=== PATIENT | male | born 1960 | race Caucasian/White ===

== ENCOUNTER 2024-11-30 09:41 | Emergency (ER) | payer MEDICAID, OTHER ==
[~2024-11-30] VITALS: Ht 170.2 cm; Wt 70.7 kg
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
--- NOTE | 2024-11-30 10:43 | DVH ---
CLINICAL INDICATION: pain TECHNIQUE: 3 radiographic views of the left hand were obtained. Comparison: None FINDINGS/IMPRESSION: There is no evidence of acute fracture or dislocation. The visualized joint space is well maintained. The alignment is anatomical. There is no radiopaque foreign body.
[2024-11-30 10:45] VITALS: BP 120/80; PULSE 87; RESP 20; TEMP 98; O2SAT 98
[2024-11-30] MEDS ORDERED: NAPR-746 PO (10:56)
== END 2024-11-30 11:00 | disposition home or self-care (01) ==
LOC: ER 09:41
DX: S63.8X2A Sprain of other part of left wrist and hand, initial encounter (principal); I10 Essential (primary) hypertension; F20.9 Schizophrenia, unspecified; G20.A1 Parkinson's disease without dyskinesia, without mention of fluctuations; W06.XXXA Fall from bed, initial encounter; Y93.89 Activity, other specified; Y92.89 Other specified places as the place of occurrence of the external cause; Y99.8 Other external cause status
CPT/HCPCS: 73130

== ENCOUNTER 2025-02-14 08:33 | Emergency (ER) | payer MEDICAID ==
[~2025-02-14] VITALS: Ht 170.2 cm; Wt 69.3 kg
[~2025-02-14 08:33] MED LIST: NAPR-746 PO
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
--- NOTE | 2025-02-14 09:46 | DVH ---
CT HEAD WITHOUT CONTRAST INDICATION: FALL EXAM DATE: 02/14/2025 08:52 AM COMPARISON: None RADIATION DOSE: CTDIvol: 69.1 mGy, DLP: 1361.3 mGy*cm PROCEDURE: CT scans of the head were obtained from the vertex to the skull base. Sagittal and coronal reconstructions were provided. All CT scans at this medical facility are performed using dose modulation techniques as appropriate t o a performed exam including the following: Automated exposure control was utilized; adjustment of th e MA and/or KV according to patient size; and use of iterative reconstruction technique. FINDINGS: There is sulcal and ventricular prominence. The brainshows normal morphology and matias-whi te matter differentiation, without intracranial hemorrhage, extra-axial fluid collection, mass effect or acute large vessel infarct. The ventricles are normal in size. The basal cisterns are patent. The skull and visible facial bones are intact. The paranasal sinuses, mastoid air cells and middle ear c avities are well-aerated. The soft tissues of the scalp are unremarkable. IMPRESSION: No acute intracranial abnormality.
[2025-02-14 09:55] VITALS: BP 105/69; PULSE 80; RESP 16; TEMP 97.5; O2SAT 97
[2025-02-14] MEDS ORDERED: ACET-1080 PO (10:03)
== END 2025-02-14 10:06 | disposition home or self-care (01) ==
LOC: ER 08:33
DX: S09.90XA Unspecified injury of head, initial encounter (principal); R51.9 Headache, unspecified; I10 Essential (primary) hypertension; W19.XXXA Unspecified fall, initial encounter; Y93.01 Activity, walking, marching and hiking; Y92.89 Other specified places as the place of occurrence of the external cause; Y99.8 Other external cause status
CPT/HCPCS: 70450

== ENCOUNTER 2025-03-06 18:25 | Emergency (ER) | payer MEDICAID ==
[~2025-03-06] VITALS: Ht 170.2 cm; Wt 71.4 kg
[~2025-03-06 18:25] MED LIST changes: +ACET-1080 PO
--- NOTE | 2025-03-06 18:50 | ED.PDOC ---
Shireen. trauma (HPI) HPI Comments 64 y/o M, with PMHx of cancer, depression, schizophrenia, and HTN, is brought in by care-planning consultant for CC of s/p fall injury. 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 Patient has a notable abrasion to the nasal bridge and right eyebrow with dry eschar present. No other symptoms or modifying factors are present at this time. Chief Complaint: Fall Injury Time Seen by MD: 18:50 Primary Care Provider: UNKNOWN Reviewed notes: Nurses Notes, Medications, Allergies Allergies: Coded Allergies: NO KNOWN ALLERGIES (Unverified , 02/14/25) Home Meds Active Scripts Acetaminophen (Tylenol 8 Hour Arthritis) 650 Mg Tab, 650 MG PO TID, #30 TAB Prov:AYANA VILLALTA 02/14/25 Naproxen (Naproxen) 500 Mg Tab, 500 MG PO BID, #30 TAB Prov:AYANA VILLALTA 11/30/24 Information Source: Patient Mode of Arrival: Ambulatory Severity: Moderate Timing: Minutes Duration: Since onset Prehospital treatment: None Location: Face (nasal bridge), Head Mechanism: Fall Associated signs and symtoms: None Past Medical History PAST MEDICAL HISTORY: Cancer, Depression, HTN, Schizophrenia, Thyroid Surgical History: Denies all surgeries Family History Family History: Reviewed,noncontributory to illness, Unknown Social History Smoker: Non-Smoker Alcohol: Denies ETOH Use Drugs: Denies Drug Use Lives In: Assisted Care Constitutional: denies: chills, diaphoresis, fatigue, fever, malaise, sweats, weakness, others EENTM: denies: blurred vision, double vision, ear bleeding, ear discharge, ear drainage, ear pain, ear ringing, eye pain, eye redness, hearing loss, mouth pain, mouth swelling, nasal discharge, nose bleeding, nose congestion, nose pain, photophobia, tearing, throat pain, throat swelling, voice changes, others Respiratory: denies: cough, hemoptysis, orthopnea, SOB at rest, shortness of breath, SOB with excertion, stridor, wheezing, others Cardiovascular: denies: chest pain, dizzy spells, diaphoresis, Dyspnea on exertion, edema, irregular heart beat, left arm pain, lightheadedness, palpitations, PND, syncope, others Gastrointestinal: denies: abdomen distended, abdominal pain, blood streaked bowels, constipated, diarrhea, dysphagia, difficulty swallowing, hematemesis, melena, nausea, poor appetite, poor fluid intake, rectal bleeding, rectal pain, vomiting, others Genitourinary: denies: burning, dysuria, flank pain, frequency, hematuria, incontinence, penile discharge, penile sore, pain, testicle pain, testicle swelling, urgency, others Neurological: denies: dizziness, fainting, headache, left sided numbness, left sided weakness, numbness, paresthesia, pre-existing deficit, right sided numbness, right sided weakness, seizure, speech problems, tingling, tremors, weakness, others Musculoskeletal: denies: back pain, gout, joint pain, joint swelling, muscle pain, muscle stiffness, neck pain, others Integumetry: reports: others (abrasion to the right eyebrow, and nasal bridge); denies: bruises, change in color, change in hair/nails, dryness, laceration, lesions, lumps, rash, wounds Allergic/Immunocompromised: denies: Difficulty Healing, Frequent Infections, Hives, Itching, others Hematologic/Lymphatic: denies: anemia, blood clots, easy bleeding, easy bruising, swollen glands, others Endocrine: denies: excessive hunger, excessive sweating, excessive thirst, excessive urination, flushing, intolerance to cold, intolerance to heat, unexplained weight gain, unexplained weight loss, others Psychiatric: denies: anxiety, bipolar disorder, depression, hopeless, panic disorder, schizophrenia, sleepless, suicidal, others All Other Systems: Reviewed and Negative Physical Exam General Appearance: No Apparent Distress, Normal HEENT: Normal ENT Inspection, Pharynx Normal Neck: Full Range of Motion, Non-Tender, Normal, Normal Inspection Respiratory: Chest Non-Tender, Lungs Clear, No Accessory Muscle Use, No Respiratory Distress, Normal Breath Sounds Cardiovascular: No Edema, No Murmur, No Gallop, Normal Peripheral Pulses, Regular Rate/Rhythm Breast Exam: Deferred Gastrointestinal: No Organomegaly, Non Tender, No Pulsatile Mass, Normal Bowel Sounds, Soft Genitalia: Deferred Pelvic: Deferred Rectal: Deferred Extremities: No calf tenderness, Normal capillary refill, Normal inspection, Normal range of motion, Non-tender, No pedal edema Musculoskeletal : Apperance: Normal Neurologic: Alert, chronometer tester II-XII nml as Tested, No Motor Deficits, Normal Affect, Normal Mood, No Sensory Deficits Cerebellar Function: Normal Reflexes: Normal Skin: Dry, Normal Color, Other (abrasion to the nasal bridge and right eyebrow, no active bleeding) Lymphatic: No Adenopathy Was a procedure done? Was a procedure done?: No Differential Diagnosis Multiple Trauma: Fractures, Abrasions X-Ray, Labs, Meds, VS Vital Signs Date Time Temp Pulse Resp B/P (MAP) Pulse Ox O2 Delivery O2 Flow Rate FiO2 03/06/25 18:31 98.2 92 18 135/85 96 98.2 [place] [address] Ph: [phone] DIAGNOSTIC IMAGING Diagnostic Imaging Report : [id number] Signed PATIENT: CHARIS PAUL ACCT: [id number] UNIT: [id number] : 1960 LOC: ER ROOM / BED: / AGE / SEX: 64 / M ADM STATUS: REG ER SERVICE 58 ORDERING PHYSICIAN: JOHNSON JOSE PROCEDURE(s): HWOCT - HEAD WITHOUT CONTRAST REASON: fall ORDER NUMBER(s): [id number], ACCESSION NUMBER(s): [id number] CLINICAL HISTORY: fall TECHNIQUE: Helical scanning was performed of the head from the skull base to the vertex. Multiplanar reconstructions were performed. This exam was performed according to our departmental dose optimization program. Up-to-date CT equipment and radiation dose reduction techniques are utilized as appropriate. CTDI 68 DLP 1200 COMPARISON: CT HEAD WITHOUT CONTRAST on DOS: 02/14/25 FINDINGS: There is no evidence for acute intracranial hemorrhage, acute ischemic changes, mass, mass effect, or extra-axial fluid collection. There is no hydrocephalus or midline shift. There is no effacement of the cerebral sulci and basal subarachno id cisterns. The matias-white matter differentiation is well maintained. The imaged paranasal sinuses are clear. IMPRESSION: NO ACUTE INTRACRANIAL ABNORMALITY SEEN. ATED BY: SURINDER BARNES MD DICTATED DATE/TIME: 03/06/251937 SIGNED BY: SURINDER BARNES MD SIGNED DATE/TIME: 03/06/251937 CC: X-Ray, Labs, Meds, VS Comment Imaging was reviewed by this provider, there is no obvious pathological or acute disease process. Pending radiology review Labs were reviewed by this provider, no abnormalities Vital signs reviewed by this provider, clinically stable Time of 1ST Reevaluation: 19:20 Reevaluation 1ST: Unchanged Patient Education/Counseling: Diagnosis, Treatment, Need For Follow Up Family Education/Counseling: Diagnosis, Treatment, Need For Follow Up (Follow up with PCP next available appointment.) Departure 1 Departure Time of Disposition: 20:06 Impression: Primary Impression: Head pain Qualified Codes: G44.209 - Tension-type headache, unspecified, not intractable Additional Impression: Status post fall Disposition: HOME / SELF CARE / HOMELESS Condition: Fair Discharged With: Self Critical Care Note Critical Care Time?: No Stability Stability form required: No Heart Score Heart Score: Heart Score Response (Comments) Value History N/A 0 EKG N/A 0 Age N/A 0 Risk Factors N/A 0 Troponin N/A 0 Total 0 I personally scribed for JOSE,CHRISTOPHER E REAL ESTATE ASSESSOR ([email or web address]) on 03/06/25 at 18:50. Electronically submitted by Irene Laboy ([employer]). I personally scribed for JOSE,CHRISTOPHER E REAL ESTATE ASSESSOR ([email or web address]) on 03/06/25 at 19:02. Electronically submitted by Irene Laboy ([employer]). I personally scribed for JOSE,CHRISTOPHER E REAL ESTATE ASSESSOR ([email or web address]) on 03/06/25 at 20:03. Electronically submitted by Irene Laboy ([employer]). JOSE,CHRISTOPHER E REAL ESTATE ASSESSOR Mar 06, 2025 18:50
--- NOTE | 2025-03-06 19:40 | DVH ---
CLINICAL HISTORY: fall TECHNIQUE: Helical scanning was performed of the head from the skull base to the vertex. Multiplanar reconstructions were performed. This exam was performed according to our departmental dose optimizat ion program. Up-to-date CT equipment and radiation dose reduction techniques are utilized as appropri ate. CTDI 68 DLP 1200 COMPARISON: CT HEAD WITHOUT CONTRAST on DOS: 02/14/25 FINDINGS: There is no evidence for acute intracranial hemorrhage, acute ischemic changes, mass, mass effect, or extra-axial fluid collection. There is no hydrocephalus or midline shift. There is no effacement of the cerebral sulci and basal subarachnoid cisterns. The matias-white matter differentiation is well lowell ntained. The imaged paranasal sinuses are clear. IMPRESSION: NO ACUTE INTRACRANIAL ABNORMALITY SEEN.
[2025-03-06 20:00] VITALS: BP 115/73; PULSE 75; RESP 20; TEMP 98.2; O2SAT 100
== END 2025-03-06 20:20 | disposition home or self-care (01) ==
LOC: ER 18:25
DX: S00.31XA Abrasion of nose, initial encounter (principal); R51.9 Headache, unspecified; I10 Essential (primary) hypertension; F20.9 Schizophrenia, unspecified; E03.9 Hypothyroidism, unspecified; W01.0XXA Fall on same level from slipping, tripping and stumbling without subsequent striking against object, initial encounter; Y93.89 Activity, other specified; Y92.89 Other specified places as the place of occurrence of the external cause; Y99.8 Other external cause status
CPT/HCPCS: 70450

== ENCOUNTER 2025-03-07 12:27 | Emergency (ER) | payer MEDICAID ==
--- NOTE | 2025-03-07 12:56 | ED.PDOC ---
Shireen. trauma (HPI) HPI Comments A 79 YEAR OLD MALE PRESENTS TO THE ED WITH COMPLAINT OF FALL INJURY. PATIENT PRESENTS WITH A CAREGIVER WHO STATES PATIENT HAD FALL LAST NIGHT P.M. WHILE GE TTING INTO BED. PATIENT FELL FORWARD ON HEAD WITH NO ASSOCIATED LOSS OF CONSCIOUSNESS AND HAS NOTED CONTUSION TO THE RIGHT SIDE OF THE FACE AND LEFT CHEEK. PATIENT HAD ANOTHER FALL EARLIER THIS A.M WITH NO ASSOCIATED LOSS OF CONSCIOUSNESS BUT STARTED TO COMPLAIN OF PAIN TO HIS LEFT SHOULDER LEFT KNEE AND WAS BROUGHT TO THE ED FOR EVALUATION. PATIENT IN THE ED ABLE TO AMBULATE WITHOUT ANY DIFFICULTY. PATIENT DENIES FEVER, CHILLS, SHORTNESS OF BREATH, CHEST PAIN, ABDOMINAL PAIN, NAUSEA, VOMITING, HEADACHE, OR OTHER COMPLAINTS. NO OTHER SYMPTOMS OR MODIFYING FACTORS AT THIS TIME. PATIENT IS ALERT, ORIENTED X 4, AND HAS STEADY GAIT. Chief Complaint: Fall Injury Time Seen by MD: 12:49 Primary Care Provider: UNKNOWN Reviewed notes: Nurses Notes, Medications, Allergies Allergies: Coded Allergies: NO KNOWN ALLERGIES (Unverified , 02/14/25) Home Meds Active Scripts Acetaminophen (Tylenol 8 Hour Arthritis) 650 Mg Tab, 650 MG PO TID, #30 TAB Prov:AYANA VILLALTA 02/14/25 Naproxen (Naproxen) 500 Mg Tab, 500 MG PO BID, #30 TAB Prov:AYANA VILLALTA 11/30/24 Information Source: Patient Mode of Arrival: Ambulatory Severity: Mild Timing: Days Duration: Since onset, Days Prehospital treatment: None Location: (L) Knee, (R) Knee Mechanism: Fall Associated signs and symtoms: None Past Medical History PAST MEDICAL HISTORY: Cancer, Depression, HTN, Schizophrenia, Thyroid Surgical History: Denies all surgeries Family History Family History: Reviewed,noncontributory to illness, Unknown Social History Smoker: Non-Smoker Alcohol: Denies ETOH Use Drugs: Denies Drug Use Lives In: Assisted Care Constitutional: denies: chills, diaphoresis, fatigue, fever, malaise, sweats, weakness, others EENTM: denies: blurred vision, double vision, ear bleeding, ear discharge, ear drainage, ear pain, ear ringing, eye pain, eye redness, hearing loss, mouth pain, mouth swelling, nasal discharge, nose bleeding, nose congestion, nose pain, photophobia, tearing, throat pain, throat swelling, voice changes, others Respiratory: denies: cough, hemoptysis, orthopnea, SOB at rest, shortness of breath, SOB with excertion, stridor, wheezing, others Cardiovascular: denies: chest pain, dizzy spells, diaphoresis, Dyspnea on exertion, edema, irregular heart beat, left arm pain, lightheadedness, palpitations, PND, syncope, others Gastrointestinal: denies: abdomen distended, abdominal pain, blood streaked bowels, constipated, diarrhea, dysphagia, difficulty swallowing, hematemesis, melena, nausea, poor appetite, poor fluid intake, rectal bleeding, rectal pain, vomiting, others Genitourinary: denies: burning, dysuria, flank pain, frequency, hematuria, incontinence, penile discharge, penile sore, pain, testicle pain, testicle swelling, urgency, others Neurological: denies: dizziness, fainting, headache, left sided numbness, left sided weakness, numbness, paresthesia, pre-existing deficit, right sided numbness, right sided weakness, seizure, speech problems, tingling, tremors, weakness, others Musculoskeletal: reports: joint pain; denies: back pain, gout, joint swelling, muscle pain, muscle stiffness, neck pain, others Integumetry: reports: bruises (ANTERIOR BOTH KNEES, NOSE AND LEFT LEFT FOREHEAD. ); denies: change in color, change in hair/nails, dryness, laceration, lesions, lumps, rash, wounds, others Allergic/Immunocompromised: denies: Difficulty Healing, Frequent Infections, Hives, Itching, others Hematologic/Lymphatic: denies: anemia, blood clots, easy bleeding, easy bruising, swollen glands, others Endocrine: denies: excessive hunger, excessive sweating, excessive thirst, excessive urination, flushing, intolerance to cold, intolerance to heat, unexplained weight gain, unexplained weight loss, others Psychiatric: denies: anxiety, bipolar disorder, depression, hopeless, panic disorder, schizophrenia, sleepless, suicidal, others All Other Systems: Reviewed and Negative Physical Exam General Appearance: No Apparent Distress, Normal HEENT: Head (NO HEMATOMAS AND CONTUSION ON SCALP, NO DEFORMITY, MILD CONTUSION ON LEFT FOREHEAD. ), Normal ENT Inspection, PERRL/EOMI, Pharynx Normal, TMs Normal, Other (TENDERNESS AND CONTUSION ON ANTERIOR NOSE, NO BONY TENDERNESS AND DEFORMITY. ) Neck: Full Range of Motion, Non-Tender, Normal, Normal Inspection Respiratory: Chest Non-Tender, Lungs Clear, No Accessory Muscle Use, No Respiratory Distress, Normal Breath Sounds Cardiovascular: No Edema, No JVD, No Murmur, No Gallop, Normal Peripheral Pulses, Regular Rate/Rhythm Breast Exam: Deferred Gastrointestinal: No Organomegaly, Non Tender, No Pulsatile Mass, Normal Bowel Sounds, Soft Genitalia: Deferred Pelvic: Deferred Rectal: Deferred Extremities: No calf tenderness, Normal capillary refill, Normal range of patricia on, No pedal edema, Tender (AND CONTUSION ON BOTH ANTERIOR KNEES, NO BONY TENDERNESS AND SWELLING. 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 ), Dry, Normal Color, Warm Peripheral Pulses: 2+ carotid (R), 2+ carotid (L), 2+ dorsalis pedis (R), 2+ dorsalis pedis (L) Lymphatic: No Adenopathy Was a procedure done? Was a procedure done?: No Differential Diagnosis Multiple Trauma: Closed Head Injury, Spine Injury, Abrasions, Contusion, Hematoma, Encephalopathy X-Ray, Labs, Meds, VS Vital Signs Date Time Temp Pulse Resp B/P (MAP) Pulse Ox O2 Delivery O2 Flow Rate FiO2 03/07/25 12:30 98.1 105 18 126/68 96 98.1 PATIENT: YAN PAULCCT: [id number]: [id number] : 1960 LOC: ER ROOM / BED: / AGE / SEX: 64 / M ADM STATUS: REG ER SERVICE 1243 ORDERING PHYSICIAN: AYANA VILLALTA PROCEDURE(s): NOSE - NASAL BONES 3+VIEWS REASON: FALL ORDER NUMBER(s): [id number], ACCESSION NUMBER(s): [id number] XY NASAL BONES 3+VIEWS INDICATION: FALL TECHNICAL DATA: Frontal, vertex, Abbe's, Gordon and lateral views were obtained of the skull. COMPARISON: None FINDINGS: No fracture or focal bone abnormality is demonstrated. The paranasal sinuses appear well aerated with no filling defect. The mastoid air cells are clear. Edentulous IMPRESSION: 1. No significantly displaced nasal bone fracture ATED BY: KELLEY LOVETT MD DICTATED DATE/TIME: 03/07/251328 SIGNED BY: KELLEY LOVETT MD SIGNED DATE/TIME: 03/07/251328 CC: X-Ray, Labs, Meds, VS Comment COURSE: EXTERNAL MEDICAL RECORDS REVIEWED: [NONE] INDEPENDENT HISTORIANS: [NONE] SOCIAL DETERMINANTS OF HEALTH: [NONE] LABS ORDERED: NONE REVIEWED AND INTERPRETED RESULTS: NONE IMAGING ORDERED: NASAL BONE X-RAY TREATMENTS ORDERED: PROCEDURES PERFORMED: NONE CRITICAL CARE TIME: NONE I HAVE DISCUSSED THE PATIENT WITH THE ATTENDING PHYSICIAN, DR. LYNN, HE AGREES WITH THE PATIENT'S PLAN OF CARE AND DISPOSITION. BASED ON HISTORY OF PRESENT ILLNESS, AND PHYSICAL EXAM, PATIENT WILL BE DISCHARGED HOME. DISCUSSED PLAN FOR DISCHARGE HOME WITH RX []. MEDICATION WARNINGS GIVEN. SHARED DECISION MAKING: DISCUSSED WITH PATIENT THAT THEIR WORKUP WAS NORMAL. PATIENT INSTRUCTED TO FOLLOW UP WITH PRIMARY CARE PROVIDER IN 1-2 DAYS FOR RE- EVALUATION OF SYMPTOMS. PATIENT VERBALIZES UNDERSTANDING TO RETURN TO ED FOR NEW OR WORSENING SYMPTOMS OR IF FOLLOW UP WITH PCP CANNOT BE OBTAINED. PATIENT FEELS COMFORTABLE GOING HOME AT THIS TIME. ALL QUESTIONS ADDRESSED AT TIME OF DISCHARGE. Time of 1ST Reevaluation: 13:50 Reevaluation 1ST: Improved Patient Education/Counseling: Diagnosis, Treatment, Need For Follow Up Family Education/Counseling: Diagnosis, Treatment, Need For Follow Up Medical Screening: No EMC Exist At This Time Departure 1 Departure Time of Disposition: 13:50 Impression: Primary Impression: Nasal contusion Qualified Codes: S00.33XA - Contusion of nose, initial encounter Additional Impressions: Contusion of forehead Qualified Codes: S00.83XA - Contusion of other part of head, initial encounter Contusion of knee Qualified Codes: S80.00XA - Contusion of unspecified knee, initial encounter Disposition: 01 HOME / SELF CARE / HOMELESS Condition: Stable Additional Instructions: INSTRUCTIONS: FOLLOW-UP WITH PCP IN 1 TO 2 DAYS. TAKE MEDICATIONS PRESCRIBED. RETURN TO ED FOR ANY NEW OR WORSENING SYMPTOMS. Discharged With: Self, [place] [facility] Critical Care Note Critical Care Time?: No Stability Stability form required: No Heart Score Heart Score: Heart Score Response (Comments) Value History N/A 0 EKG N/A 0 Age N/A 0 Risk Factors N/A 0 Troponin N/A 0 Total 0 I personally scribed for AYANA VILLALTA ([email or web address]) on 03/07/25 at 12:56. Electronically submitted by Arvind Barber ([employer]). I personally scribed for AYANA VILLALTA ([email or web address]) on 03/07/25 at 12:58. Electronically submitted by Arvind Barber ([employer]). I personally scribed for AYANA VILLALTA ([email or web address]) on 03/07/25 at 13:41. Electronically submitted by Arvind Barber ([employer]). AYANA VILLALTA Mar 07, 2025 12:56
--- NOTE | 2025-03-07 13:31 | DVH ---
XY NASAL BONES 3+VIEWS INDICATION: FALL TECHNICAL DATA: Frontal, vertex, Abbe's, Gordon and lateral views were obtained of the skull. COMPARISON: None FINDINGS: No fracture or focal bone abnormality is demonstrated. The paranasal sinuses appear well aerated with no filling defect. The mastoid air cells are clear. Edentulous IMPRESSION: 1. No significantly displaced nasal bone fracture
[2025-03-07 13:43] VITALS: BP 126/68; PULSE 105; RESP 18; TEMP 98.1; O2SAT 96
== END 2025-03-07 13:49 | disposition home or self-care (01) ==
LOC: ER 12:27
DX: S00.33XA Contusion of nose, initial encounter (principal); S00.83XA Contusion of other part of head, initial encounter; S80.02XA Contusion of left knee, initial encounter; W19.XXXA Unspecified fall, initial encounter; Y93.89 Activity, other specified; Y92.89 Other specified places as the place of occurrence of the external cause; Y99.8 Other external cause status
CPT/HCPCS: 70160

== ENCOUNTER 2025-04-14 09:40 | Emergency (ER) | payer MEDICAID ==
[~2025-04-14] VITALS: Ht 170.2 cm; Wt 67.3 kg
[2025-04-14 09:42] VITALS: BP 126/76; PULSE 126; RESP 18; TEMP 97.9; O2SAT 99
--- NOTE | 2025-04-14 10:31 | ED.PDOC ---
HPI (NEURO) HPI Comments A 64 YEAR OLD MALE PRESENTS TO THE ED WITH COMPLAINT OF HEAD INJURY. PATIENT PRESENTS WITH CAREGIVER WHO STATES EARLIER THIS MORNING PATIENT WAS IN BATHROOM AND HIT THE LEFT SIDE AT HIS HEAD ON THE TOP OF TOILET BOWL DURING SLIP AND FALL. PATIENT DID NOT LOSE CONSCIOUSNESS BUT STARTED TO COMPLAIN OF L SIDED HEAD AND POSTERIOR HEAD PAIN AND WAS BROUGHT FOR FURTHER EVALUATION. PATIENT DENIES FEVER, CHILLS, SHORTNESS OF BREATH, CHEST PAIN, ABDOMINAL PAIN, NAUSEA, VOMITING, HEADACHE, OR OTHER COMPLAINTS. NO OTHER SYMPTOMS OR MODIFYING FACTORS AT THIS TIME. PATIENT IS ALERT, ORIENTED X 4, AND HAS STEADY GAIT. Chief Complaint: Head Injury Time Seen by MD: 10:24 Primary Care Provider: UNKNOWN Reviewed Notes: Nurses Notes, Medications, Allergies Information Source: Patient, Friend Mode of Arrival: Ambulatory Brought in by: CAREGIVER Severity: Mild Dizziness/Weakness Severity: Does not affect activitie Headache Severity: Mild, Moderate Timing: Hours Duration: Since onset, Hours Prehospital treatment: None Headache Location: Frontal, Occipital During: Trauma: Head Modifying factors: Nothing Associated Signs and Symptoms: Headache Past Medical History PAST MEDICAL HISTORY: Cancer, Depression, HTN, Schizophrenia, Thyroid Surgical History: Denies all surgeries Family History Family History: Reviewed,noncontributory to illness, Unknown Social History Smoker: Non-Smoker Alcohol: Denies ETOH Use Drugs: Denies Drug Use Lives In: Assisted Care Constitutional: denies: chills, diaphoresis, fatigue, fever, malaise, sweats, weakness, others EENTM: denies: blurred vision, double vision, ear bleeding, ear discharge, ear drainage, ear pain, ear ringing, eye pain, eye redness, hearing loss, mouth pain, mouth swelling, nasal discharge, nose bleeding, nose congestion, nose pain , photophobia, tearing, throat pain, throat swelling, voice changes, others Respiratory: denies: cough, hemoptysis, orthopnea, SOB at rest, shortness of breath, SOB with excertion, stridor, wheezing, others Cardiovascular: denies: chest pain, dizzy spells, diaphoresis, Dyspnea on exertion, edema, irregular heart beat, left arm pain, lightheadedness, palpitations, PND, syncope, others Gastrointestinal: denies: abdomen distended, abdominal pain, blood streaked bowels, constipated, diarrhea, dysphagia, difficulty swallowing, hematemesis, melena, nausea, poor appetite, poor fluid intake, rectal bleeding, rectal pain, vomiting, others Genitourinary: denies: burning, dysuria, flank pain, frequency, hematuria, incontinence, penile discharge, penile sore, pain, testicle pain, testicle swelling, urgency, others Neurological: reports: headache; denies: dizziness, fainting, left sided numbne ss, left sided weakness, numbness, paresthesia, pre-existing deficit, right sided numbness, right sided weakness, seizure, speech problems, tingling, tremors, weakness, others Musculoskeletal: reports: others (HEAD PAIN); denies: back pain, gout, joint pain, joint swelling, muscle pain, muscle stiffness, neck pain Integumetry: reports: bruises (LEFT SIDE SCALP. ); denies: change in color, change in hair/nails, dryness, laceration, lesions, lumps, rash, wounds, others Allergic/Immunocompromised: denies: Difficulty Healing, Frequent Infections, Hives, Itching, others Hematologic/Lymphatic: denies: anemia, blood clots, easy bleeding, easy bruising, swollen glands, others Endocrine: denies: excessive hunger, excessive sweating, excessive thirst, excessive urination, flushing, intolerance to cold, intolerance to heat, unexplained weight gain, unexplained weight loss, others Psychiatric: denies: anxiety, bipolar disorder, depression, hopeless, panic disorder, schizophrenia, sleepless, suicidal, others All Other Systems: Reviewed and Negative Physical Exam General Appearance: No Apparent Distress, Normal HEENT: Head (MILD CONTUSION ON LEFT SIDE SCALP, NO BONY TENDERNESS, SWELLING AND DEFORMITY. ), Normal ENT Inspection, PERRL/EOMI, Pharynx Normal, TMs Normal Neck: Full Range of Motion, Non-Tender, Normal, Normal Inspection Respiratory: Chest Non-Tender, Lungs Clear, No Accessory Muscle Use, No Respiratory Distress, Normal Breath Sounds Cardiovascular: No Edema, No JVD, No Murmur, No Gallop, Normal Peripheral Pulses, Regular Rate/Rhythm Breast Exam: Deferred Gastrointestinal: No Organomegaly, Non Tender, No Pulsatile Mass, Normal Bowel Sounds, Soft Genitalia: Deferred Pelvic: Deferred Rectal: Deferred Extremities: No calf tenderness, Normal capillary refill, Normal inspection, Normal range of motion, Non-tender, No pedal edema Musculoskeletal : Apperance: Normal 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 ), Dry, Normal Color, Warm Peripheral Pulses: 2+ carotid (R), 2+ carotid (L) Lymphatic: No Adenopathy Was a procedure done? Was a procedure done?: No Differential Diagnosis (SZ) Headache: Closed Head Injury, Mass Lesion, Post-Traumatic, Other (CONTUSION OF SCALP ) X-Ray, Labs, Meds, VS Vital Signs Date Time Temp Pulse Resp B/P (MAP) Pulse Ox O2 Delivery O2 Flow Rate FiO2 04/14/25 09:42 97.9 126 18 126/76 99 97.9 [place] [address] Ph: [phone] DIAGNOSTIC IMAGING Diagnostic Imaging Report : [id number] Signed PATIENT: CHARIS PAUL ACCT: [id number] UNIT: [id number] : 1960 LOC: ER ROOM / BED: / AGE / SEX: 64 / M ADM STATUS: REG ER SERVICE [id number] ORDERING PHYSICIAN: AYANA VILLALTA PROCEDURE(s): HWOCT - HEAD WITHOUT CONTRAST REASON: FALL ORDER NUMBER(s): [id number], ACCESSION NUMBER(s): [id number] CLINICAL HISTORY: FALL TECHNIQUE: Helical scanning was performed of the head from the skull base to the vertex. Multiplanar reconstructions were performed. This exam was performed according to our departmental dose optimization program. Up-to-date CT equipment and radiation dose reduction techniques are utilized as appropriate. CTDI 49 DLP 952 COMPARISON: CT HEAD WITHOUT CONTRAST on DOS: 03/06/25, CT HEAD WITHOUT CONTRAST on DOS: 02/14/25 FINDINGS: There is no evidence for acute intracranial hemorrhage, acute ischemic changes, mass, mass effect, or extra-axial fluid collection. There is no hydrocephalus or midline shift. There is no effacement of the cerebral sulci and basal subarachnoid cisterns. The matias-white matter differentiation is well maintained. There is mild brain volume loss. There is a trace right mastoid effusion. IMPRESSION: NO ACUTE INTRACRANIAL ABNORMALITY SEEN. ATED BY: STEVEN MCCONNELL MD DICTATED DATE/TIME: 04/14/251101 SIGNED BY: STEVEN MCCONNELL MD SIGNED DATE/TIME: 04/14/251101 CC: X-Ray, Labs, Meds, VS Comment COURSE: EXTERNAL MEDICAL RECORDS REVIEWED: [NONE] INDEPENDENT HISTORIANS: [NONE] SOCIAL DETERMINANTS OF HEALTH: [NONE] LABS ORDERED: NONE REVIEWED AND INTERPRETED RESULTS: NONE IMAGING ORDERED: CT HEAD WITHOUT CONTRAST TREATMENTS ORDERED: NONE PROCEDURES PERFORMED: NONE CRITICAL CARE TIME: NONE I HAVE DISCUSSED THE PATIENT WITH THE ATTENDING PHYSICIAN DR. LYNN AND HE AGREES WITH THE PATIENT'S PLAN OF CARE AND DISPOSITION. BASED ON HISTORY OF PRESENT ILLNESS, AND PHYSICAL EXAM, PATIENT WILL BE DISCHAR GED HOME. SHARED DECISION MAKING: DISCUSSED WITH PATIENT THAT THEIR WORKUP WAS NORMAL. PATIENT INSTRUCTED TO FOLLOW UP WITH PRIMARY CARE PROVIDER IN 1-2 DAYS FOR RE- EVALUATION OF SYMPTOMS. PATIENT VERBALIZES UNDERSTANDING TO RETURN TO ED FOR NEW OR WORSENING SYMPTOMS OR IF FOLLOW UP WITH PCP CANNOT BE OBTAINED. PATIENT FEELS COMFORTABLE GOING HOME AT THIS TIME. ALL QUESTIONS ADDRESSED AT TIME OF DISCHARGE. Time of 1ST Reevaluation: 11:40 Reevaluation 1ST: Improved Patient Education/Counseling: Diagnosis, Treatment, Need For Follow Up Family Education/Counseling: Diagnosis, Treatment, Need For Follow Up Medical Screening: No EMC Exist At This Time Departure 1 Departure Time of Disposition: 11:40 Impression: Primary Impression: Fall with injury Qualified Codes: W19.XXXA - Unspecified fall, initial encounter Additional Impression: Contusion of scalp Qualified Codes: S00.03XA - Contusion of scalp, initial encounter Disposition: 01 HOME / SELF CARE / HOMELESS Condition: Stable Additional Instructions: F/U PCP IN 2 DAYS RECHECK. IF CONDITION BECOME WORSE, RETURN TO ED GUY. Discharged With: Self, Coil Builder Critical Care Note Critical Care Time?: No Stability Stability form required: No Heart Score Heart Score: Heart Score Response (Comments) Value History N/A 0 EKG N/A 0 Age N/A 0 Risk Factors N/A 0 Troponin N/A 0 Total 0 I personally scribed for AYANA VILLALTA ([email or web address]) on 04/14/25 at 10:31. Electronically submitted by Arvind Barber ([email or web address]). I personally scribed for AYANA VILLALTA ([email or web address]) on 04/14/25 at 11:14. Electronically submitted by Arvind Barber ([email or web address]). AYANA VILLALTA Apr 14, 2025 10:31
--- NOTE | 2025-04-14 11:05 | DVH ---
CLINICAL HISTORY: FALL TECHNIQUE: Helical scanning was performed of the head from the skull base to the vertex. Multiplanar reconstructions were performed. This exam was performed according to our departmental dose optimization program. Up-to-date CT equipment and radiation dose reduction techniques are utilized as appropriate. CTDI 49 DLP 952 COMPARISON: CT HEAD WITHOUT CONTRAST on DOS: 03/06/25, CT HEAD WITHOUT CONTRAST on DOS: 02/14/25 FINDINGS: There is no evidence for acute intracranial hemorrhage, acute ischemic changes, mass, mass effect, or extra-axial fluid collection. There is no hydrocephalus or midline shift. There is no effacement of the cerebral sulci and basal subarachnoid cisterns. The matias-white matter differentiation is well maintained. There is mild brain volume loss. There is a trace right mastoid effusion. IMPRESSION: NO ACUTE INTRACRANIAL ABNORMALITY SEEN.
== END 2025-04-14 11:43 | disposition home or self-care (01) ==
LOC: ER 09:40
DX: S00.03XA Contusion of scalp, initial encounter (principal); F32.A Depression, unspecified; I10 Essential (primary) hypertension; F20.9 Schizophrenia, unspecified; W01.0XXA Fall on same level from slipping, tripping and stumbling without subsequent striking against object, initial encounter; Y93.89 Activity, other specified; Y92.89 Other specified places as the place of occurrence of the external cause; Y99.8 Other external cause status
CPT/HCPCS: 70450